=== PATIENT | male | born 1960 | race Caucasian/White ===

== ENCOUNTER → 2019-10-15 | Outpatient (CLI) | payer MEDICARE, MEDICAID, SELFPAY | PROVIDERS: Family Provider Family Medicine; Visit Provider Physician Assistant | DX: K80.20 Calculus of gallbladder without cholecystitis without obstruction (principal); K74.60 Unspecified cirrhosis of liver; R16.1 Splenomegaly, not elsewhere classified; K76.6 Portal hypertension; N20.0 Calculus of kidney; K57.30 Diverticulosis of large intestine without perforation or abscess without bleeding; I70.0 Atherosclerosis of aorta | CPT/HCPCS: 74177; Q9967 ×2 ==

== ENCOUNTER 2019-10-30 12:54 | Outpatient (RCR) | payer MEDICARE, MEDICAID, SELFPAY ==
[2019-10-30 13:15] LABS: Basophils # 0.1 10^3/uL (0.0-0.1); Basophils % 1.2 %; Eosinophils # 0.2 10^3/uL (0.0-0.8); Eosinophils % 2.3 %; Lymphocytes # 1.2 10^3/uL (0.8-4.8); Mean Corpuscular HGB Conc 32.4 g/dL (30.0-36.0); Mean Corpuscular Hemoglobin 34.1 pg (28.0-34.0); Mean Corpuscular Volume 105.1 fL (80-94); Mean Platelet Volume 10.4 fL (7.4-10.4); Monocytes # 0.6 10^3/uL (0.2-0.9); Monocytes % 8.3 %; Neutrophils # 4.7 10^3/uL (1.8-7.7); Nucleated Red Blood Cells % 0 %; Platelet Count 78 10^3/cmm (130-400); Red Blood Count 3.52 10^6/uL (4.1-5.3); Red Cell Distribution Width 13.5 % (12.1-15.1); White Blood Count 6.9 10^3/uL (4.0-10.0)
== END 2019-11-15 23:59 | disposition home or self-care (01) ==
LOC: LAB 12:54
PROVIDERS: Family Provider Family Medicine; Visit Provider Physician Assistant
DX: K72.91 Hepatic failure, unspecified with coma (principal); B18.2 Chronic viral hepatitis C
CPT/HCPCS: 85025; 85610

== ENCOUNTER 2020-01-28 13:05 | Emergency (ER) | payer MEDICARE, MEDICAID, SELFPAY ==
[2020-01-28 13:10] VITALS: BP 131/69; PULSE 69; RESP 14; TEMP 37.1; O2SAT 99; BMI 30.7
--- NOTE | 2020-01-28 13:16 | W.ED.ABDPA2 ---
HPI - Abdominal Pain General: Chief Complaint: Abdominal Pain Stated Complaint: R UPPER ABD PAIN Time Seen by Provider: 01/28/20 13:09 History of Present Illness: HPI narrative: Patient is a 60-year-old male who comes to the ED with abdominal pain. 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 Pain is an 8 out of 10 and it is in the epigastric region of the abdomen. Pain started 2 days ago after eating some food. Patient says pain does get worse when he lays down. he denies any nausea, fevers, vomiting, chest pain, shortness of breath, diarrhea, constipation, dysuria or hematuria. Patient is a half a pack a day smoker. Associated Symptoms: Denies chills, constipation, diarrhea, dysuria, fever(s), hematochezia, hematuria, nausea and vomiting Review of Systems Const: Denies: fever, chills or fatigue Eyes: Denies: change in vision or eye discomfort ENMT: Denies: throat pain, painful swallowing, nasal discharge or nasal congestion Card: Reports: chest pain (epigastric); Denies: palpitations, edema, swelling of feet/ankles, shortness of breath on exertion or shortness of breath when lying down Resp: Denies: shortness of breath, productive cough or non-productive cough GI: Reports: abdominal pain; Denies: nausea, vomiting, diarrhea, constipation or blood in stool : Denies: flank pain, difficulty urinating, painful urination or blood in urine Musc: Denies: neck pain, back pain or extremity swelling Skin/Breast: Denies: rash or new lesion Neuro: Denies: headache, numbness in extremities or weakness in extremities PFS ED PFSH: Family History Mother , AT AGE 66 CAD (coronary artery disease) Father , AT AGE 74 UNKNOWN CAUSE No problems noted. Social History Smoking and tobacco status: current every day smoker Alcohol intake: unknown Adopted: No Caregiver/support person: No Housing: Alf Marital status: Single Current occupational status: disabled History of recent travel: No Current gender identity: Male Physical Exam Const: COMMON NORMALS: no apparent distress and oriented x3 GENERAL APPEARANCE: cooperative and comfortable; not in distress HENMT: COMMON NORMALS: normocephalic HEAD & SCALP: normocephalic MOUTH: oral and palatal mucosa normal THROAT: posterior oropharynx normal and uvula midline Eye: COMMON NORMALS: PERRL CONJUNCTIVA: Yes conjunctiva abnormal positive bilateral conjunctival icterus PUPIL: Yes PERRL Neck/C-Spine: COMMON NORMALS: supple GENERAL: Yes normal visual inspection Resp: COMMON NORMALS: normal respiratory effort, no retractions, no use of accessory muscles and clear to auscultation bilaterally AUSCULTATION: clear to auscultation bilaterally Cardio: COMMON NORMALS: regular rate, regular rhythm, S1 normal heart sound, S2 normal heart sound, no gallops, no clicks, no murmurs and peripheral pulses 2+ throughout RATE: regular rate RHYTHM: regular rhythm HEART SOUNDS: S1 normal and S2 normal PERIPHERAL PULSES: pulses 2+ throughout GI: COMMON NORMALS: normal to inspection, nondistended, normoactive bowel sounds, soft to palpation and no masses INSPECTION: Yes central obesity PALPATION: Yes soft and Yes tender (Mild tenderness in epigastric) : COMMON NORMALS: Yes no CVA tenderness BLADDER/KIDNEY EXAM: Yes no CVA tenderness Back/Pelvis: COMMON NORMALS: no CVA tenderness Extremity: COMMON NORMALS: normal to inspection and normal capillary refill Neuro: COMMON NORMALS: oriented x3 GAIT: Yes normal gait Skin: COMMON NORMALS: no rashes or lesions noted GENERAL SKIN EXAM: no rashes or lesions noted and dry skin Course Vital Signs: Vital signs: Vital Signs Temperature 98.8 F 01/28/20 13:10 Pulse Rate 72 01/28/20 17:30 Respiratory Rate 15 01/28/20 17:30 Blood Pressure 152/82 01/28/20 17:30 Pulse Oximetry 94 01/28/20 17:30 MDM - Abdominal Pain MDM Narrative: Medical decision making narrative: Patient is a 60-year-old male who comes to the ED with epigastric pain. Patient has a past medical history of alcohol induced liver disease and cirrhosis. Denies any recent alcohol use but does state that pain started after eating a meal. Physical exam shows patient in no acute distress. Sclera icterus present in both eyes. Patient has tenderness upon palpation of the epigastric area of abdomen. CBC was unremarkable. Patient had an elevated lipase of 71 and an elevated total bilirubin of 7.5, AST 49 ALT 24. EKG showed normal sinus rhythm and troponins were negative ruling out any cardiac cause of epigastric pain. Chest x-ray-Mild interstitial thickening is probably due to small amount of venous congestion. No pneumonia. CT of the abdomen-1. Marked cirrhosis with splenomegaly and TIPS procedure. Similar in appearance to the prior study. 2. Cholelithiasis with mild gallbladder distention and stones. Very similar in appearance to the prior study of 10/15/2019. No wall thickening. 3. Mild LEFT hydroureteronephrosis. Change in caliber LEFT ureter is near the pelvic brim. There are numerous calcifications which are probably arterial dislocation. Cannot confirm obstructing ureteral calcification. The dilatation is new since 10/15/2019. Patient was diagnosed with hyperbilirubinemia and jaundice. Patient's pain was controlled with IV fluids and morphine. Patient was told to follow-up with PCP in 7 days for reevaluation. He can take ibuprofen or Aleve for any pain and I also discussed with him about monitoring foods that cause epigastric pain and trying to avoid those foods (fatty and greasy foods). Patient understood and agreed with plan. Lab Data: Attestation: I reviewed the patient's lab results. Labs: Lab Results 01/28/20 01/28/20 01/28/20 Range/Units 13:45 13:45 13:45 WBC 7.6 (4.0-10.0) 10^3/ uL RBC 3.63 L (4.1-5.3) 10^6/u L Hgb 12.6 (11.7-16.6) g/dL Hct 38.3 L (42.0-52.0) % MCV 105.5 H (80-94) fL MCH 34.7 H (28.0-34.0) pg MCHC 32.9 (30.0-36.0) g/dL RDW 13.9 (12.1-15.1) % Plt Count 61 L (130-400) 10^3/c mm MPV 9.8 (7.4-10.4) fL Neut % (Auto) 71.9 % Lymph % (Auto) 17.1 % Murray % (Auto) 6.1 % Eos % (Auto) 2.4 % Baso % (Auto) 1.2 % Neut # (Auto) 5.5 (1.8-7.7) 10^3/u L Lymph # (Auto) 1.3 (0.8-4.8) 10^3/u L Murray # (Auto) 0.5 (0.2-0.9) 10^3/u L Eos # (Auto) 0.2 (0.0-0.8) 10^3/u L Baso # (Auto) 0.1 (0.0-0.1) 10^3/u L Nucleated RBC % (a uto) 0 % Nucleated RBCs # 0.0 /100WBC Sodium 135 L (136-145) mmol/L Potassium 4.5 (3.5-5.1) mmol/L Chloride 100 (98-107) mmol/L Carbon Dioxide 27 (22-29) mmol/L Anion Gap 12.5 (5-19) BUN 5 L (6-20) mg/dL Creatinine 0.8 (0.7-1.2) mg/dL GFR Calculation 99.3 (90-130) mL/min Glucose 330 H (65-115) mg/dL Calculated Osmolal ity 289 (285-295) mOsm/k g Calcium 9.6 (8.5-10.5) mg/dL Total Bilirubin 7.5 H* (0.15-1.2) mg/dL AST 49 H (0-40) U/L ALT 24 (0-41) U/L Alkaline Phosphata se 147 H (40-130) IU/L Troponin T Baselin e 11 (0-15) ng/mL Troponin T 120 [place] (0-15) ng/mL Delta Troponin T (0-10) ABS# Total Protein 8.5 (6.6-8.7) g/dL Albumin 2.7 L (3.5-5.2) g/dL Globulin 5.8 H (1.3-4.6) g/dL Lipase 71 H (13-60) U/L 01/28/20 Range/Units 15:40 WBC (4.0-10.0) 10^3/ uL RBC (4.1-5.3) 10^6/u L Hgb (11.7-16.6) g/dL Hct (42.0-52.0) % MCV (80-94) fL MCH (28.0-34.0) pg MCHC (30.0-36.0) g/dL RDW (12.1-15.1) % Plt Count (130-400) 10^3/c mm MPV (7.4-10.4) fL Neut % (Auto) % Lymph % (Auto) % Murray % (Auto) % Eos % (Auto) % Baso % (Auto) % Neut # (Auto) (1.8-7.7) 10^3/u L Lymph # (Auto) (0.8-4.8) 10^3/u L Murray # (Auto) (0.2-0.9) 10^3/u L Eos # (Auto) (0.0-0.8) 10^3/u L Baso # (Auto) (0.0-0.1) 10^3/u L Nucleated RBC % (a uto) % Nucleated RBCs # /100WBC Sodium (136-145) mmol/L Potassium (3.5-5.1) mmol/L Chloride (98-107) mmol/L Carbon Dioxide (22-29) mmol/L Anion Gap (5-19) BUN (6-20) mg/dL Creatinine (0.7-1.2) mg/dL GFR Calculation (90-130) mL/min Glucose (65-115) mg/dL Calculated Osmolal ity (285-295) mOsm/k g Calcium (8.5-10.5) mg/dL Total Bilirubin (0.15-1.2) mg/dL AST (0-40) U/L ALT (0-41) U/L Alkaline Phosphata se (40-130) IU/L Troponin T Baselin e (0-15) ng/mL Troponin T 120 [place] 10.52 (0-15) ng/mL Delta Troponin T -0.48 L (0-10) ABS# Total Protein (6.6-8.7) g/dL Albumin (3.5-5.2) g/dL Globulin (1.3-4.6) g/dL Lipase (13-60) U/L Imaging Data ^: CXR: Attestation: I personally reviewed and interpreted this imaging study as follows: Radiologist's impression: [address] [address] XRay Report Signed Patient: Jet Jaimes Unit #: [id number] : 1960 Age/Sex: 60 / M ADM Date: 01/28/20 Loc: ER Room/Bed: Attending Dr: Ordering Provider/Ordering MD: Paul Mancilla Date of Service: 01/28/20 Procedure(s): XR chest 1V portable [id number] Accession Number(s): [id number] Report Number: [id number] WS: [id number] PORTABLE CHEST HISTORY: epigastric/chest pain COMPARISON: 03/07/2019 Mild interstitial thickening is similar to the prior studies. No pneumonia. No pleural effusion or pneumothorax. Cardiac size: Normal. Mediastinum/Aorta: Normal mediastinum. No osseous abnormality seen. XR/XR chest 1V portable [id number] IMPRESSION: Mild interstitial thickening is probably due to small amount of venous congestion. No pneumonia. Dictated By: Shena Candelario DO Signed By: Shena Candelario DO Signed Date/Time: 01/28/204 DD/ 1453 CT Abd/Pel: Attestation: I personally reviewed and interpreted this imaging study as follows: Radiologist's impression: [address] [address] [address] Scan Report Signed Patient: Jet Jaimes Unit #: [id number] : 1960 Age/Sex: 60 / M ADM Date: 01/28/20 Loc: ER Room/Bed: Attending Dr: Ordering Provider/Ordering MD: Paul Mancilla Date of Service: 01/28/20 Procedure(s): CT abdomen pelvis w con* [id number] Accession Number(s): [id number] Report Number: [id number] WS: [id number] CT ABDOMEN AND PELVIS WITH CONTRAST HISTORY: abdominal pain TECHNIQUE: Imaging performed of the abdomen and pelvis with IV contrast. Single phase imaging of the abdomen. Coronal and sagittal reformats are submitted. All CT scans at [facility] use at least one of these dose optimization techniques: automated exposure control; mA and/or kV adjustment per patient size (includes targeted exams where dose is matched to clinical indication); or iterative reconstruction. IV CONTRAST: Visipaque 320; 95 mL IV. Oral contrast: No DLP: 2137.56 mGy.cm COMPARISON: 10/15/2019 Lower thorax: Progression of interstitial thickening at the lung bases. Heart is normal size. Small hiatal hernia. Liver/biliary system: Markedly abnormal liver. Lobulated surface from cirrhosis. No intrahepatic duct dilatation. Intrahepatic portacaval shunt remains unchanged in position. Recanalized umbilical vein. Gallbladder: Gallbladder is well distended and contains stones and sludge. No wall thickening. Similar appearance as compared to prior studies. Pancreas: Normal. Spleen: Moderately enlarged spleen measures 18 cm in length. There is extensive splenorenal shunting. Adrenal glands: Normal. Right kidney: Normal. Left kidney: Mild hydroureteronephrosis. There is a nonobstructing 3 mm calcification in the lower pole. The LEFT ureter is dilated to the region of the pelvic brim. As the LEFT ureter courses towards the midline and crosses the iliac artery the ureter becomes lost to visualization. There are calcifications in this location but there are probably related to arterial calcifications. I suspect there is a small stone in the ureter. The ureter distal is normal size. Aorta: Moderate atherosclerosis aorta. Lymphadenopathy: None. Free fluid: None. GI tract: Prior appendectomy. No GI tract obstruction. There are a few diverticula without acute diverticulitis. Abdominal wall: Unremarkable abdominal wall. No hernia. Pelvis: Normal. Bones: Sclerotic changes at T7 and T8 similar to the prior study. CT/CT abdomen pelvis w con* [id number] IMPRESSION: 1. Marked cirrhosis with splenomegaly and TIPS procedure. Similar in appearance to the prior study. 2. Cholelithiasis with mild gallbladder distention and stones. Very similar in appearance to the prior study of 10/15/2019. No wall thickening. 3. Mild LEFT hydroureteronephrosis. Change in caliber LEFT ureter is near the pelvic brim. There are numerous calcifications which are probably arterial dislocation. Cannot confirm obstructing ureteral calcification. The dilatation is new since 10/15/2019. Dictated By: Shena Candelario DO Signed By: Shena Candelario DO Signed Date/Time: 01/28/20 1543 DD/ 1529 EKG Data ^: EKG 1: Attestation: I personally reviewed and interpreted this EKG as follows: EKG interpretation date: 01/28/20 Interpretation: Normal sinus rhythm. P waves present. No ST segment elevation or depreciation. BPM around 70-75 Discharge Plan Discharge Patient Disposition: Home, Self-Care Clinical Impression: Hyperbilirubinemia, Jaundice Condition: Stable Prescriptions: No Action oxycodone 5 mg tablet 2.5 mg PO Q6H PRN (Reason: pain) Qty: 14 RF: 0 propranolol 10 mg tablet 10 mg PO DAILY RF: 0 olopatadine 0.2 % drops See Rx Instructions .ROUTE .COMPLEX RF: 0 Xifaxan 550 mg tablet See Rx Instructions .ROUTE .COMPLEX RF: 0 Tresiba FlexTouch U-100 100 unit/mL (3 mL) insulin pen See Rx Instructions .ROUTE .COMPLEX RF: 0 lactulose 10 gram/15 mL solution See Rx Instructions .ROUTE .COMPLEX RF: 0 Discharge Orders: Discharge Order (Routine); Ordered 01/28/20 Ordered By: Paul Mancilla Referrals: Felix Garcia MD [Family Provider] - Discharge Diet: Regular Discharge Activity: Resume usual activity Patient Instructions: Cirrhosis (ED), Liver Disease Diet (GEN), Jaundice (ED) Activity Restrictions/Additional Instructions: Follow-up with your PCP in 7 days for reevaluation. Continue taking all home medications. Take ibuprofen or Aleve for pain. Monitor your diet and try to avoid foods that cause epigastric pain. Drink plenty of fluids and stay hydrated. Discharge Date/Time: 01/28/20 17:41 Coding Level of Care Code ED Manager Cardiovascular for Chg Fwd Exam Comprehensive
[2020-01-28 13:52] LABS: Basophils # 0.1 10^3/uL (0.0-0.1); Basophils % 1.2 %; Eosinophils # 0.2 10^3/uL (0.0-0.8); Eosinophils % 2.4 %; Hematocrit 38.3 % (42.0-52.0); Hemoglobin 12.6 g/dL (11.7-16.6); Lymphocytes # 1.3 10^3/uL (0.8-4.8); Lymphocytes % 17.1 %; Mean Corpuscular HGB Conc 32.9 g/dL (30.0-36.0); Mean Corpuscular Hemoglobin 34.7 pg (28.0-34.0); Mean Corpuscular Volume 105.5 fL (80-94); Mean Platelet Volume 9.8 fL (7.4-10.4); Monocytes # 0.5 10^3/uL (0.2-0.9); Monocytes % 6.1 %; Neutrophils # 5.5 10^3/uL (1.8-7.7); Neutrophils % 71.9 %; Nucleated Red Blood Cells % 0 %; Platelet Count 61 10^3/cmm (130-400); Red Blood Count 3.63 10^6/uL (4.1-5.3); Red Cell Distribution Width 13.9 % (12.1-15.1); White Blood Count 7.6 10^3/uL (4.0-10.0)
--- NOTE | 2020-01-28 14:00 | XR_ITS ---
WS: [id number] PORTABLE CHEST HISTORY: epigastric/chest pain COMPARISON: 03/07/2019 Mild interstitial thickening is similar to the prior studies. No pneumonia. No pleural effusion or pn eumothorax. Cardiac size: Normal. Mediastinum/Aorta: Normal mediastinum. No osseous abnormality seen. XR/XR chest 1V portable [id number] IMPRESSION: Mild interstitial thickening is probably due to small amount of venous congesti on. No pneumonia.
[2020-01-28 14:05] LABS: Alanine Aminotransferase 24 U/L (0-41); Albumin Level 2.7 g/dL (3.5-5.2); Alkaline Phosphatase 147 IU/L (40-130); Anion Gap 12.5 (5-19); Aspartate Amino Transferase 49 U/L (0-40); Blood Urea Nitrogen 5 mg/dL (6-20); Calcium 9.6 mg/dL (8.5-10.5); Carbon Dioxide 27 mmol/L (22-29); Chloride 100 mmol/L (98-107); Globulin 5.8 g/dL (1.3-4.6); Glomerular Filtration Rate 99.3 mL/min (90-130); Glucose 330 mg/dL (65-115); Lipase 71 U/L (13-60); Osmolality Calculated 289 mOsm/kg (285-295); Potassium 4.5 mmol/L (3.5-5.1); Sodium 135 mmol/L (136-145); Total Protein 8.5 g/dL (6.6-8.7)
[2020-01-28 14:07] LABS: Troponin(5th) Baseline 11 ng/mL (0-15)
[2020-01-28 14:11] LABS: Total Bilirubin 7.5 mg/dL (0.15-1.2)
[2020-01-28 14:23] VITALS: RESP 16
[2020-01-28] MEDS: ondansetron 2 mg/ML SDV 2 mL 4 MG IVP (14:25)
[2020-01-28 14:28] VITALS: BP 128/72; PULSE 74; RESP 16; O2SAT 93
--- NOTE | 2020-01-28 14:41 | CT_ITS ---
WS: [id number] CT ABDOMEN AND PELVIS WITH CONTRAST HISTORY: abdominal pain TECHNIQUE: Imaging performed of the abdomen and pelvis with IV contrast. Single phase imaging of the abdomen. Coronal and sagittal reformats are submitted. All CT scans at [facility] use at least one of these dose optimization techniques: automated exposure control; mA and/or kV adjustment per patient size (includes targeted exams where dose is matched to clinical indication); or iterativ e reconstruction. IV CONTRAST: Visipaque 320; 95 mL IV. Oral contrast: No DLP: 2137.56 mGy.cm COMPARISON: 10/15/2019 Lower thorax: Progression of interstitial thickening at the lung bases. Heart is normal size. Small h iatal hernia. Liver/biliary system: Markedly abnormal liver. Lobulated surface from cirrhosis. No intrahepatic duct dilatation. Intrahepatic portacaval shunt remains unchanged in position. Recanalized umbilical vein. Gallbladder: Gallbladder is well distended and contains stones and sludge. No wall thickening. Simila r appearance as compared to prior studies. Pancreas: Normal. Spleen: Moderately enlarged spleen measures 18 cm in length. There is extensive splenorenal shunting. Adrenal glands: Normal. Right kidney: Normal. Left kidney: Mild hydroureteronephrosis. There is a nonobstructing 3 mm calcification in the lower po le. The LEFT ureter is dilated to the region of the pelvic brim. As the LEFT ureter courses towards t he midline and crosses the iliac artery the ureter becomes lost to visualization. There are calcifica tions in this location but there are probably related to arterial calcifications. I suspect there is a small stone in the ureter. The ureter distal is normal size. Aorta: Moderate atherosclerosis aorta. Lymphadenopathy: None. Free fluid: None. GI tract: Prior appendectomy. No GI tract obstruction. There are a few diverticula without acute dive rticulitis. Abdominal wall: Unremarkable abdominal wall. No hernia. Pelvis: Normal. Bones: Sclerotic changes at T7 and T8 similar to the prior study. CT/CT abdomen pelvis w con* [id number] IMPRESSION: 1. Marked cirrhosis with splenomegaly and TIPS procedure. Similar in appearanc e to the prior study. 2. Cholelithiasis with mild gallbladder distention and stones. Very similar in appearance to the prior study of 10/15/2019. No wall thickening. 3. Mild LEFT hydroureteronephrosis. Change in caliber LEFT ureter is near the pelvic brim. There are numerous calcifications which are probably arterial disl ocation. Cannot confirm obstructing ureteral calcification. The dilatation is n ew since 10/15/2019.
[2020-01-28] MEDS: iodixanol 320 mg/mL 100mL Btl IV (15:23)
--- NOTE | 2020-01-28 15:33 | ECG_ITS ---
Measurements Intervals [place] Rate: 60 P: 51 WY: 149 QRS: 1 QRSD: 110 T: 17 QT: 431 QTc: 434 SINUS RHYTHM POSSIBLE LATERAL MYOCARDIAL INFARCTION , OF INDETERMINATE AGE MODERATE T-WAVE ABNORMALITY, CONSIDER ANTERIOR ISCHEMIA Compared to ECG 03/07/2019 21:36:33 Myocardial infarct finding now present Possible ischemia now present T-wave abnormality still present Electronically Signed On 01-28-2020 19:41:52 CDT by Clary Henry M.D. [email or web address]
[2020-01-28 16:00] VITALS: BP 125/67; PULSE 68; RESP 18; O2SAT 95
[2020-01-28 16:05] LABS: Troponin 5 2HR 10.52 ng/mL (0-15)
[2020-01-28 16:12] LABS: Troponin 5 2HR Delta -0.48 ABS# (0-10)
[2020-01-28 17:00] VITALS: BP 126/61; PULSE 62; RESP 16; O2SAT 94
[2020-01-28 17:30] VITALS: BP 152/82; PULSE 72; RESP 15; O2SAT 94
--- NOTE | 2020-01-28 19:33 | ECG_ITS ---
Measurements Intervals [place] Rate: 70 P: 52 DC: 149 QRS: 1 QRSD: 109 T: 12 QT: 384 QTc: 415 SINUS RHYTHM NONSPECIFIC T-WAVE ABNORMALITY Compared to ECG 03/07/2019 21:36:33 No significant changes Electronically Signed On 01-28-2020 19:52:41 CDT by Clary Henry M.D. [email or web address]
== END 2020-01-28 17:41 | disposition home or self-care (01) ==
PROVIDERS: Emergency Provider Physician Assistant; Family Provider Family Medicine
DX: R17 Unspecified jaundice (principal); Z82.49 Family history of ischemic heart disease and other diseases of the circulatory system; F17.210 Nicotine dependence, cigarettes, uncomplicated; R07.9 Chest pain, unspecified
CPT/HCPCS: 12345; 36415; 71045; 74177; 76705; 80053; 83605; 83690; 84484; 85025; 87040; 93005; 96361; 96374; 96375; 99283; 99284; J1170; J2405; J7030; Q9967

== ENCOUNTER 2020-01-28 22:01 | Emergency (ER) | payer MEDICARE, MEDICAID, SELFPAY ==
[2020-01-28] VITALS (8 sets, daily range): BP systolic 128–153; BP diastolic 70–78; PULSE 84; RESP 18–20; TEMP 36.5; O2SAT 92–97; BMI 30.7
--- NOTE | 2020-01-28 22:04 | US_ITS ---
WS: [id number] RIGHT UPPER QUADRANT ULTRASOUND HISTORY: abd pain COMPARISON: 04/18/2018 Liver: 13.4 cm in length. Liver is slightly small. Surface of the liver is lobulated and irregular. C oarsened echotexture throughout. No bile duct dilatation. Portacaval shunt is again noted. Gallbladder: Gallbladder is abnormal. Slightly contracted gallbladder with stones and sludge. Mild di ffuse gallbladder wall thickening. CBD: 0.8 cm Pancreas: Not visualized. Right kidney: 12.3 cm in length. Normal echogenicity with no mass or hydronephrosis. Aorta and IVC: Unremarkable. No ascites. US/US gall bladder [id number] IMPRESSION: 1. Mildly contracted gallbladder with stones and sludge and mild wall thickeni ng. In the correct clinical setting consider acute cholecystitis. These finding s have been present on prior studies. Gallbladder is not hydropic. 2. Advanced cirrhosis with TIPS procedure. 3. Common bile duct slightly enlarged.
--- NOTE | 2020-01-28 22:06 | W.ED.ABDPA2 ---
HPI - Abdominal Pain General: Chief Complaint: Abdominal Pain Stated Complaint: UPPER ABD PAIN Time Seen by Provider: 01/28/20 22:04 Source: patient and EMS Mode of arrival: EMS Limitations: no limitations History of Present Illness: HPI narrative: 60-year-old male with a history of cirrhosis here from longterm with abdominal pain he has had right upper quadrant and left upper quadrant abdominal pain over the last 2 days. Patient was seen here earlier today and had a CT scan that showed gallstones. Bilirubin was elevated but does have a history of elevated bilirubin likely from his cirrhosis. He denies any fevers. He states pain is currently a 4 out of 10. MD elicited complaint: abdominal pain Onset (ago): day(s) Location: LUQ and RUQ Severity: moderate Quality: stabbing Migration to: no migration Exacerbating factors: nothing Relieving factors: nothing Associated Symptoms: Denies chills, diarrhea, dysuria, fever(s), nausea and vomiting Review of Systems Const: Denies: fever, chills, body aches or change in appetite Eyes: Denies: blurry vision or eye discomfort ENMT: Denies: throat pain or dental pain Card: Denies: chest pain Resp: Denies: shortness of breath GI: Reports: abdominal pain; Denies: nausea, vomiting or diarrhea : Denies: painful urination Musc: Denies: neck pain or back pain Skin/Breast: Denies: rash Neuro: Denies: headache Psych: Denies: depression Petr/Lymph: Denies: easy bruising All/Imm: Denies: hives PFSH ED PFSH: Family History Mother , AT AGE 66 CAD (coronary artery disease) Father , AT AGE 74 UNKNOWN CAUSE No problems noted. Social History Smoking and tobacco status: current every day smoker Alcohol intake: unknown Adopted: No Caregiver/support person: No Housing: Assisted Marital status: Single Current occupational status: disabled History of recent travel: No Current gender identity: Male Physical Exam Const: COMMON NORMALS: no apparent distress, oriented x3 and healthy appearing HENMT: COMMON NORMALS: normocephalic and head/scalp atraumatic HEAD & SCALP: normocephalic and atraumatic Eye: COMMON NORMALS: PERRL and EOMs intact bilaterally PUPIL: Yes PERRL Neck/C-Spine: COMMON NORMALS: full ROM and supple Chest: COMMONS NORMALS: inspection of chest normal and palpation of chest normal Resp: COMMON NORMALS: normal respiratory effort, no retractions, no use of accessory muscles and clear to auscultation bilaterally AUSCULTATION: clear to auscultation bilaterally Cardio: COMMON NORMALS: regular rate, regular rhythm and no murmurs RATE: regular rate RHYTHM: regular rhythm GI: COMMON NORMALS: normal to inspection, nondistended, normoactive bowel sounds, soft to palpation and no masses PALPATION: Yes soft OTHER: slight upper abdomen tenderness Extremity: COMMON NORMALS: normal to inspection and full ROM Neuro: COMMON NORMALS: oriented x3, moves all extremities and no focal motor deficits Psych: COMMON NORMALS: mental status grossly normal, thought process normal and cooperative THOUGHT PROCESS: normal thought process Skin: COMMON NORMALS: no rashes or lesions noted and no wounds GENERAL SKIN EXAM: no rashes or lesions noted Course Vital Signs: Vital signs: Vital Signs Temperature 97.7 F 01/28/20 22:01 Pulse Rate 84 01/28/20 22:01 Respiratory Rate 18 01/28/20 22:54 Blood Pressure 128/70 01/28/20 22:45 Pulse Oximetry 95 01/28/20 22:45 MDM - Abdominal Pain MDM Narrative: Medical decision making narrative: Patient presents with glo pain likely from gallstones. His ultrasound showed no signs of cholecystitis. He does have an elevated bilirubin that is chronic in nature looking better previous labs and likely from his cirrhosis. Ultrasound showed no sign of common bile duct obstruction at this time. Patient's abdominal exam at this time is benign he has no fever. We will place him on pain meds and he is stable for discharge back to longterm and will have him follow-up with a general surgeon in 3 to 5 days. Lab Data: Labs: Lab Results 01/28/20 01/28/20 01/28/20 Range/Units 22:27 22:27 22:27 WBC 7.6 (4.0-10.0) 10^3/ uL RBC 3.62 L (4.1-5.3) 10^6/u L Hgb 12.5 (11.7-16.6) g/dL Hct 38.1 L (42.0-52.0) % MCV 105.2 H (80-94) fL MCH 34.5 H (28.0-34.0) pg MCHC 32.8 (30.0-36.0) g/dL RDW 14.0 (12.1-15.1) % Plt Count 59 L (130-400) 10^3/c mm MPV 9.7 (7.4-10.4) fL Neut % (Auto) 71.6 % Lymph % (Auto) 17.7 % [place] % (Auto) 6.1 % Eos % (Auto) 2.5 % Baso % (Auto) 0.9 % Neut # (Auto) 5.4 (1.8-7.7) 10^3/u L Lymph # (Auto) 1.3 (0.8-4.8) 10^3/u L [place] # (Auto) 0.5 (0.2-0.9) 10^3/u L Eos # (Auto) 0.2 (0.0-0.8) 10^3/u L Baso # (Auto) 0.1 (0.0-0.1) 10^3/u L Nucleated RBC % (a uto) 0 % Nucleated RBCs # 0.0 /100WBC Sodium 135 L (136-145) mmol/L Potassium 3.6 (3.5-5.1) mmol/L Chloride 100 (98-107) mmol/L Carbon Dioxide 24 (22-29) mmol/L Anion Gap 14.6 (5-19) BUN 7 (6-20) mg/dL Creatinine 0.8 (0.7-1.2) mg/dL GFR Calculation 99.3 (90-130) mL/min Glucose 378 H (65-115) mg/dL Calculated Osmolal ity 291 (285-295) mOsm/k g Lactate 2.5 H (0.5-2.2) mmol/L Calcium 9.2 (8.5-10.5) mg/dL Total Bilirubin 7.2 H* (0.15-1.2) mg/dL AST 48 H (0-40) U/L ALT 24 (0-41) U/L Alkaline Phosphata se 140 H (40-130) IU/L Total Protein 7.7 (6.6-8.7) g/dL Albumin 2.5 L (3.5-5.2) g/dL Globulin 5.2 H (1.3-4.6) g/dL Lipase 72 H (13-60) U/L Discharge Plan Discharge Patient Disposition: Home, Self-Care Clinical Impression: Biliary colic Gallstone Qualifiers: Cholecystitis presence: without cholecystitis Biliary obstruction: without biliary obstruction Qualified Code(s): K80.20 - Calculus of gallbladder without cholecystitis without obstruction Condition: Stable Prescriptions: New oxycodone 5 mg tablet 2.5 mg PO Q6H PRN (Reason: pain) Qty: 14 RF: 0 No Action propranolol 10 mg tablet 10 mg PO DAILY RF: 0 olopatadine 0.2 % drops See Rx Instructions .ROUTE .COMPLEX RF: 0 Xifaxan 550 mg tablet See Rx Instructions .ROUTE .COMPLEX RF: 0 Tresiba FlexTouch U-100 100 unit/mL (3 mL) insulin pen See Rx Instructions .ROUTE .COMPLEX RF: 0 lactulose 10 gram/15 mL solution See Rx Instructions .ROUTE .COMPLEX RF: 0 Discharge Orders: Discharge Order (Routine); Ordered 01/28/20 Ordered By: Jermain Hernandez Referrals: Richard Meier MD [Physician] - 4-7 days Felix Garcia MD [Family Provider] - Discharge Diet: Advance as tolerated Discharge Activity: Resume usual activity Patient Instructions: Abdominal Pain (ED) Coding Level of Care Code ED Branch Chief for Chg Fwd Exam Comprehensive
[2020-01-28 22:40] LABS: Basophils # 0.1 10^3/uL (0.0-0.1); Basophils % 0.9 %; Eosinophils # 0.2 10^3/uL (0.0-0.8); Eosinophils % 2.5 %; Hematocrit 38.1 % (42.0-52.0); Hemoglobin 12.5 g/dL (11.7-16.6); Lymphocytes # 1.3 10^3/uL (0.8-4.8); Lymphocytes % 17.7 %; Mean Corpuscular HGB Conc 32.8 g/dL (30.0-36.0); Mean Corpuscular Hemoglobin 34.5 pg (28.0-34.0); Mean Corpuscular Volume 105.2 fL (80-94); Mean Platelet Volume 9.7 fL (7.4-10.4); Monocytes # 0.5 10^3/uL (0.2-0.9); Monocytes % 6.1 %; Neutrophils # 5.4 10^3/uL (1.8-7.7); Neutrophils % 71.6 %; Nucleated Red Blood Cells % 0 %; Platelet Count 59 10^3/cmm (130-400); Red Blood Count 3.62 10^6/uL (4.1-5.3); White Blood Count 7.6 10^3/uL (4.0-10.0)
[2020-01-28] MEDS: HYDROmorphone 1 mg/mL INJ 1 mL 0.5 MG IVP (22:54)
[2020-01-28] MEDS: ondansetron 2 mg/ML SDV 2 mL 4 MG IVP (22:57)
[2020-01-28 22:59] LABS: Alanine Aminotransferase 24 U/L (0-41); Albumin Level 2.5 g/dL (3.5-5.2); Alkaline Phosphatase 140 IU/L (40-130); Anion Gap 14.6 (5-19); Aspartate Amino Transferase 48 U/L (0-40); Blood Urea Nitrogen 7 mg/dL (6-20); Calcium 9.2 mg/dL (8.5-10.5); Carbon Dioxide 24 mmol/L (22-29); Chloride 100 mmol/L (98-107); Globulin 5.2 g/dL (1.3-4.6); Glomerular Filtration Rate 99.3 mL/min (90-130); Glucose 378 mg/dL (65-115); Lipase 72 U/L (13-60); Osmolality Calculated 291 mOsm/kg (285-295); Potassium 3.6 mmol/L (3.5-5.1); Sodium 135 mmol/L (136-145); Total Protein 7.7 g/dL (6.6-8.7)
[2020-01-28 23:00] LABS: Lactate (Lactic Acid level) 2.5 mmol/L (0.5-2.2)
[2020-01-28 23:12] LABS: Total Bilirubin 7.2 mg/dL (0.15-1.2)
[2020-01-28] MEDS: sodium chloride 0.9% 1,000 ML 999 ML IV (23:45)
[2020-01-29] VITALS (47 sets, daily range): BP systolic 128–171; BP diastolic 70–95; PULSE 68–82; RESP 16–18; TEMP 36.8; O2SAT 91–98
--- NOTE | 2020-01-30 08:53 | DCPLANNER ---
credit department manager had message to schedule a follow up appointment for patient with general surgery. credit department manager called [facility], spoke with Sofi. credit department manager gave clinic patients information, was told that patients information would be printed and reviewed. Clinic will call patient with appointment information. credit department manager will call for appointment information.
--- NOTE | 2020-01-31 12:21 | DCPLANNER ---
Patient has a follow up appointment scheduled for Monday, February 03, [address] at 9:[address] Persaud. Clinic will call patient with appointment information.
--- NOTE | 2020-02-27 15:44 | DCPLANNER ---
Patient did attend appointment scheduled for 02.03.20 with [facility].
== END 2020-01-29 08:39 | disposition home or self-care (01) ==
PROVIDERS: Emergency Provider Emergency Medicine; Family Provider Family Medicine
DX: K80.20 Calculus of gallbladder without cholecystitis without obstruction (principal); Z82.49 Family history of ischemic heart disease and other diseases of the circulatory system; F17.210 Nicotine dependence, cigarettes, uncomplicated
CPT/HCPCS: 12345; 36415; 76705; 80053; 83605; 83690; 85025; 96361; 96374; 96375; 99284; J1170; J2405; J7030

== ENCOUNTER 2020-04-17 13:56 | Outpatient (CLI) | payer MEDICARE, MEDICAID, SELFPAY ==
[2020-04-17 14:31] LABS: Urine Color Amber (Yellow); pH Urine 5 (5-7)
[2020-04-17 14:32] LABS: Add Urine Microscopic? YES; Bilirubin Urine 1+ (NEGATIVE); Blood Urine 3+ (Negative); Glucose Urine UA Norm (Normal); Ketones Urine Negative (Negative); Leukocyte Esterase Urine Negative (Negative); Nitrate Urine Negative (Negative); Protein Urine Neg (Negative); Urobilinogen Urine 8 mg/dL (Negative)
[2020-04-17 14:33] LABS: Add Urine Culture? Yes; Bacteria Urine 1+; Mucus Urine 2+; RBC Urine 0-4 /hpf (0-2); Squamous Epithelial Cell Urine 0-4 (0-5); WBC Urine 0-4 /hpf (0-5)
== END 2020-04-17 13:57 | disposition home or self-care (01) ==
LOC: LAB 13:58
PROVIDERS: Family Provider Family Medicine; Visit Provider Family Medicine
DX: K72.91 Hepatic failure, unspecified with coma (principal); N39.0 Urinary tract infection, site not specified; F33.0 Major depressive disorder, recurrent, mild
CPT/HCPCS: 81001; 87086